=== PATIENT | male | born 1980 | race Caucasian/White ===

== ENCOUNTER 2025-06-12 22:07 | Emergency (ER) | payer OTHER ==
[~2025-06-12] VITALS: Ht 165.1 cm; Wt 71.5 kg
[2025-06-12 22:11] VITALS: O2SAT 100
[2025-06-12 22:20] VITALS: BP 140/94; PULSE 45; RESP 16; TEMP 37; O2SAT 99
[2025-06-12 23:19] LABS: BASOPHILS % 0.4 % (0.0-2.0); EOSINOPHILS % 0.8 % (0.0-5.0); HEMATOCRIT. 43.4 % (42.0-52.0); HEMOGLOBIN. 14.8 g/dL (14.0-18.0); LYMPHOCYTES % 49.8 % (20.0-50.0); MEAN PLATELET VOLUME 8.6 fl (7.4-10.4); MONOCYTES % 7.8 % (2.0-8.0); NEUTROPHILS % 41.2 % (40.0-76.0); PLATELET 212 x1000/uL (130-400); RED BLOOD CELL COUNT 5.30 mill/uL (4.7-6.1); RED CELL DISTRIBUTION WIDTH 13.0 % (11.6-14.6)
[2025-06-12 23:22] LABS: CREATININE 0.7 mg/dL (0.6-1.3); UREA NITROGEN BLOOD 15 mg/dL (9-23)
[2025-06-12 23:24] LABS: TROPONIN I HIGH SENSITIVITY < 4 ng/L (3.0-53)
== END 2025-06-13 02:25 | disposition left against medical advice (07) ==
LOC: ER 22:07
DX: R07.89 Other chest pain (principal); M25.512 Pain in left shoulder; Z53.21 Procedure and treatment not carried out due to patient leaving prior to being seen by health care provider
CPT/HCPCS: 36415; 71045; 80048; 84484; 85025; 93005